=== PATIENT | female | born 1960 | race Caucasian/White ===

== ENCOUNTER 2016-09-24 10:48 | Emergency (ER) | payer OTHER ==
[2016-09-24 10:58] VITALS: BP 139/78; PULSE 124; RESP 22; TEMP 97.5
--- NOTE | 2016-09-24 12:14 | ED ---
General Adult HPI - General Chief complaint: Recheck/Abnormal Lab/Rx Stated complaint: CATHETER PROBLEM Time Seen by Provider: 09/24/16 11:08 Source: patient, RN notes reviewed, old records reviewed Mode of arrival: wheelchair Limitations: no limitations - History of Present Illness Initial comments: This is a 56-year-old female here for evaluation of catheter issues, patient does have positive indwelling Gaffney, patient states she is having urinary retention decreased mobility of Gaffney to have output. Patient's drinking and eating appropriately. Patient denies any other specific complaints no abdominal pain, no flank pain. No change in urination, no blood in her urine. Patient is not on blood thinners. - Related Data Home Medications Medication Instructions Recorded Confirmed Ciprofloxacin HCl [Cipro] 500 mg PO Q12H 09/25/16 09/25/16 HYDROcodone/APAP 5-325MG [[place] 1 tab PO Q4HR PRN 09/25/16 09/25/16 5-325] LORazepam [Ativan] 0.5 - 1 mg PO BID PRN 09/25/16 09/25/16 Allergies Allergy/AdvReac Type Severity Reaction Status Date / Time latex AdvReac Swelling Verified 09/25/16 13:02 Review of Systems ROS Statement: Those systems with pertinent positive or pertinent negative responses have been documented in the HPI. ROS Other: All systems not noted in ROS Statement are negative. Past Medical History Past Medical History: No Reported History Additional Past Medical History / Comment(s): Kidney tumor; Lung nodules History of Any Multi-Drug Resistant Organisms: None Reported Past Surgical History: Adenoidectomy, Appendectomy, Cholecystectomy, Tonsillectomy, Tubal Ligation Past Anesthesia/Blood Transfusion Reactions: No Reported Reaction Past Psychological History: Anxiety, Depression Smoking Status: Current every day smoker Past Alcohol Use History: None Reported Past Drug Use History: None Reported - Past Family History Mother Family Medical History: Cancer, Congestive Heart Failure (CHF), Diabetes Mellitus, Hypertension General Exam Limitations: no limitations General appearance: alert, in no apparent distress Head exam: Present: atraumatic, normocephalic, normal inspection Eye exam: Present: normal appearance, PERRL, EOMI. Absent: scleral icterus, conjunctival injection, periorbital swelling ENT exam: Present: normal exam, mucous membranes moist Neck exam: Present: normal inspection. Absent: tenderness, meningismus, lymphadenopathy Respiratory exam: Present: normal lung sounds bilaterally. Absent: respiratory distress, wheezes, rales, rhonchi, stridor Cardiovascular Exam: Present: regular rate, normal rhythm, normal heart sounds. Absent: systolic murmur, diastolic murmur, rubs, gallop, clicks GI/Abdominal exam: Present: soft, normal bowel sounds. Absent: distended, tenderness, guarding, rebound, rigid Extremities exam: Present: normal inspection, full ROM, normal capillary refill. Absent: tenderness, pedal edema, joint swelling, calf tenderness Back exam: Present: normal inspection Neurological exam: Present: alert, oriented X3, CN II-XII intact Psychiatric exam: Present: normal affect, normal mood Skin exam: Present: warm, dry, intact, normal color. Absent: rash Course Vital Signs 09/24/16 10:54 Temperature 97.5 F L Pulse Rate 124 H Respiratory 22 Rate Blood Pressure 139/78 O2 Sat by Pulse 100 Oximetry Medical Decision Making - Medical Decision Making 56 female here with UTI and urinary retention, Gaffney was exchanged, patient having good output. Patient's pain is resolving can be discharged home with antibiotics for infection. Disposition Clinical Impression: Urinary retention, UTI (urinary tract infection), Hematuria, Renal mass Disposition: HOME SELF-CARE Condition: Good Instructions: Hematuria (ED), Urinary Tract Infection in Women (ED), Acute Urinary Retention in Women (ED) Referrals: Janae Hammond MD [Primary Care Provider] - 1-2 days
== END 2016-09-24 12:21 | disposition home or self-care (01) ==
LOC: EC 10:48
DX: R33.9 Retention of urine, unspecified (principal); N39.0 Urinary tract infection, site not specified; R31.9 Hematuria, unspecified; N28.89 Other specified disorders of kidney and ureter; Z79.899 Other long term (current) drug therapy; Z91.040 Latex allergy status; F17.200 Nicotine dependence, unspecified, uncomplicated
CPT/HCPCS: 99283

== ENCOUNTER 2016-09-25 11:47 | Emergency (ER) | payer OTHER ==
[2016-09-25 12:17] VITALS: RESP 18
--- NOTE | 2016-09-25 12:28 | ED ---
General Adult HPI - General Chief complaint: Urogenital Stated complaint: Female Time Seen by Provider: 09/25/16 12:14 Source: patient, RN notes reviewed, old records reviewed Mode of arrival: ambulatory Limitations: no limitations - History of Present Illness Initial comments: This is a 56-year-old female here for evaluation of bowel pain, severe bowel. And hematuria. Patient has recent placement of Gaffney secondary to urinary urinary retention secondary to cancer. Patient's was seen in ER yesterday and symptoms of progressively worsening, she did have Gaffney changed yesterday but still having severe pain. No other complaints, no fevers. No nausea or vomiting. - Related Data Previous Rx's Medication Instructions Recorded Acetaminophen Tab [Tylenol] 650 mg PO Q6HR PRN #0 tab 09/07/16 HYDROcodone/APAP 5-325MG [[place] 1 each PO Q4HR PRN #0 tab 09/07/16 5-325] Nicotine 21Mg/24Hr Patch [Habitrol] 1 patch TRANSDERM DAILY patch 09/07/16 Ondansetron [Zofran] 4 mg IVP Q8HR PRN #0 vial 09/07/16 Phenazopyridine [Pyridium] 100 mg PO TID tab 09/07/16 cefTRIAXone [Rocephin] 1,000 mg IVPB Q24HR vial 09/07/16 traMADol HCl [Ultram] 50 mg PO Q6H PRN #20 tab 09/15/16 Allergies Allergy/AdvReac Type Severity Reaction Status Date / Time latex AdvReac Swelling Verified 09/25/16 12:13 Review of Systems ROS Statement: Those systems with pertinent positive or pertinent negative responses have been documented in the HPI. ROS Other: All systems not noted in ROS Statement are negative. Past Medical History Past Medical History: No Reported History Additional Past Medical History / Comment(s): Kidney tumor; Lung nodules History of Any Multi-Drug Resistant Organisms: None Reported Past Surgical History: Adenoidectomy, Appendectomy, Cholecystectomy, Tonsillectomy, Tubal Ligation Past Anesthesia/Blood Transfusion Reactions: No Reported Reaction Past Psychological History: Anxiety, Depression Smoking Status: Current every day smoker Past Alcohol Use History: None Reported Past Drug Use History: None Reported - Past Family History Mother Family Medical History: Cancer, Congestive Heart Failure (CHF), Diabetes Mellitus, Hypertension General Exam Limitations: no limitations General appearance: alert, in no apparent distress Head exam: Present: atraumatic, normocephalic, normal inspection Eye exam: Present: normal appearance, PERRL, EOMI. Absent: scleral icterus, conjunctival injection, periorbital swelling ENT exam: Present: normal exam, mucous membranes moist Neck exam: Present: normal inspection. Absent: tenderness, meningismus, lymphadenopathy Respiratory exam: Present: normal lung sounds bilaterally. Absent: respiratory distress, wheezes, rales, rhonchi, stridor Cardiovascular Exam: Present: regular rate, normal rhythm, normal heart sounds. Absent: systolic murmur, diastolic murmur, rubs, gallop, clicks GI/Abdominal exam: Present: soft, normal bowel sounds. Absent: distended, tenderness, guarding, rebound, rigid Extremities exam: Present: normal inspection, full ROM, normal capillary refill. Absent: tenderness, pedal edema, joint swelling, calf tenderness Back exam: Present: normal inspection Neurological exam: Present: alert, oriented X3, CN II-XII intact Psychiatric exam: Present: normal affect, normal mood Skin exam: Present: warm, dry, intact, normal color. Absent: rash Course Vital Signs 09/25/16 12:14 Temperature 98.4 F Pulse Rate 96 Respiratory 18 Rate Blood Pressure 113/66 O2 Sat by Pulse 94 L Oximetry - Reevaluation(s) Reevaluation #1: 09/25/16 12:57 Spoke the patient's doctor, will transfer to [facility] Medical Decision Making - Medical Decision Making 56 female here for evaluation of urinary retention, hematuria, patient is on antibiotics which she will continue, patient is not controllable transferred referred me for urological evaluation. Disposition Clinical Impression: Hematuria, Renal mass, Urinary retention, UTI (urinary tract infection), Right renal mass, Gaffney catheter problem Disposition: OTHER INSTITUTION NOT DEFINED Condition: Fair Referrals: Janae Hammond MD [Primary Care Provider] - 1-2 days - Out of Hospital Transfer - Req. Specs Out of Hospital Transfer - Requested Specifics: Other Emergency Center ([facility])
[2016-09-25] MEDS ORDERED: MORPHINE SULFATE 4 MG/ML SYRINGE IVP STA (12:56)
[2016-09-25] MEDS ORDERED: SODIUM CHLORIDE 0.9% 1,000 ML IV STA ×2 (12:56)
[2016-09-25 18:14] VITALS: BP 120/68; PULSE 72; TEMP 98.1
== END 2016-09-25 18:38 | disposition left against medical advice (07) ==
LOC: EC 11:47
DX: N28.89 Other specified disorders of kidney and ureter (principal); N39.0 Urinary tract infection, site not specified; R33.9 Retention of urine, unspecified; R31.9 Hematuria, unspecified; F17.200 Nicotine dependence, unspecified, uncomplicated
CPT/HCPCS: 99285; 96374; 96361 ×5; J2270

== ENCOUNTER → 2021-03-10 | Outpatient (CLI) | payer OTHER ==
--- NOTE | 2021-03-14 08:53 | MM ---
Reason for exam: screening (asymptomatic). Last mammogram was performed 6 years and 10 months ago. History: Patient is postmenopausal and history of other cancer. Family history of breast cancer in mother at age 63. Physical Findings: A clinical breast exam by your physician is recommended on an annual basis and results should be correlated with mammographic findings. MG Screening Mammo w CAD Bilateral CC and MLO view(s) were taken. Prior study comparison: May 07, 2014, bilateral MG screening mammo w CAD. The breast tissue is heterogeneously dense. This may lower the sensitivity of mammography. There are benign appearing coarse calcifications bilaterally. No significant changes when compared with prior studies. ASSESSMENT: Benign, BI-RAD 2 RECOMMENDATION: Routine screening mammogram of both breasts in 1 year.
== END | disposition home or self-care (01) ==
LOC: RADMAMWWP 13:55
PROVIDERS: ATTEND Internal Medicine
DX: Z12.31 Encounter for screening mammogram for malignant neoplasm of breast (principal)
CPT/HCPCS: 77067